=== PATIENT | male | born 1985 | race Hispanic/Latino ===

== ENCOUNTER 2017-02-26 08:31 | Inpatient (IN) | payer OTHER ==
[~2017-02-26] VITALS: Ht 167.6 cm; Wt 77.8 kg
[2017-02-26] MEDS ORDERED: D3-5CAP (08:51)
[2017-02-26] MEDS ORDERED: FLUO20CA9 (08:51)
[2017-02-26] MEDS ORDERED: ZALE10CA (08:51)
[2017-02-26 09:50] LABS: MEAN CORPUSCULAR HEMOGLOBIN 25.8 pg (27.0-33.0); MEAN CORPUSCULAR HGB CONC 33.3 g/dl (32.0-36.5); MEAN CORPUSCULAR VOLUME 77.5 fl (80.0-96.0); RED CELL DISTRIBUTION WIDTH 13.3 % (11.5-14.5); WHITE BLOOD COUNT 5.7 K/mm3 (4.0-10.0)
[2017-02-26 10:13] LABS: METHADONE URINE NEGATIVE (NEGATIVE)
[2017-02-26 10:22] LABS: ALBUMIN 4.4 GM/DL (3.2-5.2); ALBUMIN/GLOBULIN RATIO 1.29 (1.00-1.93); ALKALINE PHOSPHATASE 72 U/L (45-117); ALT/SGPT 67 U/L (12-78); ANION GAP 5 MEQ/L (8-16); AST/SGOT 23 U/L (15-37); BILIRUBIN,DIRECT < 0.1 MG/DL (0.0-0.2); BILIRUBIN,TOTAL 0.5 MG/DL (0.2-1.0); BLOOD UREA NITROGEN 15 MG/DL (7-18); CALCIUM LEVEL 9.1 MG/DL (8.5-10.1); CARBON DIOXIDE LEVEL 32 MEQ/L (21-32); CHLORIDE LEVEL 99 MEQ/L (98-107); CREATININE FOR GFR 1.13 MG/DL (0.70-1.30); GLOMERULAR FILTRATION RATE > 60.0 (>60); GLUCOSE, FASTING 78 MG/DL (70-105); POTASSIUM SERUM 4.3 MEQ/L (3.5-5.1); SODIUM LEVEL 136 MEQ/L (136-145); TOTAL PROTEIN 7.8 GM/DL (6.4-8.2)
[2017-02-26] MEDS ORDERED: SONA10CA6 PO (14:40)
[2017-02-26] MEDS ORDERED: PROZ20CA11 PO (14:40)
[2017-02-26] MEDS ORDERED: VITA1CAP25 PO (14:40)
[2017-02-26] MEDS ORDERED: NYQU1LIQ PO (14:40)
[2017-02-26 15:41] VITALS: BP 133/82
[2017-02-26] MEDS ORDERED: MAALOX 30 ML SUSP *UDC PO PRN (17:30)
[2017-02-26] MEDS ORDERED: ACETAMINOPHEN TAB 650MG DOSE (2X325MG) PO PRN (17:30)
[2017-02-26] MEDS ORDERED: MOM 30ML SUSPENSION UDC PO PRN (17:30)
[2017-02-26] MEDS: hydrOXYzine 50 MG TAB PO PRN (20:41)
[2017-02-26] MEDS ORDERED: FLUoxetine 20 MG CAP PO SCH (21:00)
[2017-02-26] MEDS ORDERED: traZODone 50 MG TAB PO ONE (21:30)
[2017-02-27 06:00] VITALS: BP 111/54
[2017-02-27] MEDS: hydrOXYzine 50 MG TAB PO PRN (12:12)
--- NOTE | 2017-02-27 13:38 | HPEPDOC ---
Medical History and Physical Date of Admission Feb 26, 2017 at 14:13 History and Physical PCP: Freddy ATTENDING: Dr. Sarath Williamson HPI: 31yoM admitted to [facility] for unspecified depressive disorder, being medically examined today. Pt states he has been having RLQ abdominal pain that comes and goes. Denies any urinary complaints, diarrhea, constipation. Denies any fevers, chills, weakness, fatigue, DAMON, CP, SOB, cough, palpitations, abdominal pain, N/V/D or changes in bowel or bladder habits. PMHx: chronic neck pain/LBP/Knee pain- [facility] Pain management Vitamin D Def insomnia allergic rhinitis depression RHETT/CPAP PSHX: back injections knee injections wisdom teeth extraction SOCHX: Resides in: [place], from 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 ROS: As noted in HPI, otherwise 11pt ROS of systems reviewed and unremarkable. PE: GEN: 31yoM, appears stated age. Well-nourished, well developed. No acute distress. Alert and oriented x 3. Pleasant, interactive. HEENT: Normocephalic, atraumatic. Pupils are equal, round, and reactive to light. Extraocular movements are intact. No nystagmus appreciated. Sclera are nonicteric. Conjunctiva without injection. Nose midline. Nasal turbinates without bogginess. EACs both patent BL. TMs both visualized and weir with good cone of light, no bulging or erythema. No facial asymmetry. Moist mucous membranes. Dentition fair. Pharynx pink and moist, no cobblestoning. Neck supple , trachea midline. No lymphadenopathy or thyromegaly appreciated. CHEST: Regular rate and rhythm, +S1, +S2 LUNGS: Clear to auscultation bilaterally. No wheezes, rales, or rhonchi. Breathing appears symmetric and easy. Patient is speaking in full sentences. No accessory muscle use. ABD: Round, soft, mild RLQ TTP, non-distended. +Bowel sounds throughout. No rebound or guarding. No costovertebral angle tenderness. EXT: Pulses 2+ bilaterally dorsalis pedis and radial. No lower extremity edema appreciated. SKIN: [place], dry, warm. Capillary refill <2sec. No rashes. NEURO: Alert and oriented x 3. Cranial nerves III-XII are intact. No focal deficits appreciated. EKG: pending. A&P: 31yoM admitted to [facility] for unspecified depressive disorder, 1. Psych. Plan per Psychiatry. Obtain baseline EKG to assure the safety of psychiatric medications as they can prolong the QT interval. 2. allergic rhinitis. Add Zyrtec. 3. Vitamin d deficiency. Continue supplement. Update Vitamin D level. 4. Follow up with PCP on discharge. 5. Abdominal pain. CBC/CMP. Check CT A/P. 6. RHETT. Continue with CPAP. 7. Sherice LAWSON present throughout exam. Vital Signs Vital Signs Date Time Temp Pulse Resp B/P (MAP) Pulse Ox O2 Delivery O2 Flow Rate FiO2 02/27/17 06:00 98.6 63 16 111/54 (73) 02/26/17 15:41 98 Room Air Laboratory Data Labs 24H Item Value Date Time White Blood Count 5.7 K/mm3 02/26/17 0938 Red Blood Count 5.52 M/mm3 02/26/17 0938 Hemoglobin 14.3 g/dl 02/26/17 0938 Hematocrit 42.8 % 02/26/17 0938 Mean Corpuscular Volume 77.5 fl L 02/26/17 0938 Mean Corpuscular Hemoglobin 25.8 pg L 02/26/17 0938 Mean Corpuscular Hemoglobin Concent 33.3 g/dl 02/26/17 0938 Red Cell Distribution Width 13.3 % 02/26/17 0938 Platelet Count 198 k/mm3 02/26/17 0938 Sodium Level 136 MEQ/L 02/26/17 0938 Potassium Level 4.3 MEQ/L 02/26/17 0938 Chloride Level 99 MEQ/L 02/26/17 0938 Carbon Dioxide Level 32 MEQ/L 02/26/17 0938 Anion Gap 5 MEQ/L L 02/26/17 0938 Blood Urea Nitrogen 15 MG/DL 02/26/17 0938 Creatinine 1.13 MG/DL 02/26/17 0938 Glomerular Filtration Rate > 60.0 02/26/17 0938 Fasting Glucose 78 MG/DL 6/15/17 0938 Calcium Level 9.1 MG/DL 02/26/17937 Total Bilirubin 0.5 MG/DL 02/26/17937 Direct Bilirubin < 0.1 MG/DL 02/26/17937 Aspartate Amino Transf (AST/SGOT) 23 U/L 02/26/17937 Alanine Aminotransferase (ALT/SGPT) 67 U/L 02/26/17 09 Alkaline Phosphatase 72 U/L 02/26/17937 Albumin 4.4 GM/DL 02/26/17937 Total Protein 7.8 GM/DL 02/26/17937 Albumin/Globulin Ratio 1.29 02/26/17937 Thyroid Stimulating Hormone (TSH) 1.050 uIU/ML 02/26/17937 Salicylates Level < 1.7 MG/DL L 02/26/17937 Urine Opiates Screen NEGATIVE 02/26/17937 Urine Methadone Screen NEGATIVE 02/26/17937 Acetaminophen Level < 2.0 UG/ML L 02/26/17937 Urine Barbiturates Screen NEGATIVE 02/26/17 09 Urine Phencyclidine Screen NEGATIVE 02/26/17 0938 Urine Amphetamines Screen NEGATIVE 02/26/1738 Urine Benzodiazepines Screen NEGATIVE 02/26/17937 Urine Cocaine Metabolite Screen NEGATIVE 02/26/17937 Urine Cannabinoids Screen NEGATIVE 02/26/17937 Ethyl Alcohol Level 0.004 % 02/26/17 09 Home Medications Scheduled (Sonata) 10 Mg Cap, 10 MG PO QHS Cholecalciferol (Vitamin D3) 50,000 Unit Cap, 50,000 UNIT PO QWEEK Fluoxetine HCl (Prozac) 20 Mg Cap, 40 MG PO QHS Scheduled PRN (Nyquil Severe Cold/Flu 5-6.25-10-325 mg/15Ml) 1 Liq Liq, 1 LIQ PO QHS PRN for COLD SYMPTOMS Allergies Coded Allergies: Zolpidem (Unverified Adverse Reaction, Severe, Suicidal ideations, 02/26/17 ) Nay Andrade Feb 27, 2017 13:38
[2017-02-27] MEDS: CETIRIZINE (ZyrTEC) 10 MG TAB PO SCH (15:40)
[2017-02-27 15:49] LABS: BASO % 0.4 % (0.0-1.0); EOS # 0.3 K/mm3 (0.0-0.50); EOS % 6.4 % (0.0-3.0); LARGE UNSTAINED CELL # 0.1 K/mm3 (0.0-0.4); LARGE UNSTAINED CELL % 1.3 % (0.0-4.0); LYMPH # 1.4 K/mm3 (1.5-6.5); LYMPH % 30.1 % (24.0-44.0); MEAN CORPUSCULAR HEMOGLOBIN 26.3 pg (27.0-33.0); MEAN CORPUSCULAR HGB CONC 34.1 g/dl (32.0-36.5); MEAN CORPUSCULAR VOLUME 77.1 fl (80.0-96.0); MONO # 0.3 K/mm3 (0.0-0.8); MONO % 5.9 % (0.0-5.0); NEUTROPHILS # 2.4 K/mm3 (1.8-7.7); NEUTROPHILS % 55.9 % (36.0-66.0); PLATELET COUNT, AUTOMATED 195 k/mm3 (150-450); RED CELL DISTRIBUTION WIDTH 13.2 % (11.5-14.5); WHITE BLOOD COUNT 4.4 K/mm3 (4.0-10.0)
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
[2017-02-27 16:57] LABS: ALBUMIN 3.7 GM/DL (3.2-5.2); ALBUMIN/GLOBULIN RATIO 1.28 (1.00-1.93); ALKALINE PHOSPHATASE 68 U/L (45-117); ALT/SGPT 59 U/L (12-78); ANION GAP 5 MEQ/L (8-16); AST/SGOT 17 U/L (15-37); BILIRUBIN,TOTAL 0.3 MG/DL (0.2-1.0); BLOOD UREA NITROGEN 17 MG/DL (7-18); CALCIUM LEVEL 8.6 MG/DL (8.5-10.1); CARBON DIOXIDE LEVEL 32 MEQ/L (21-32); CHLORIDE LEVEL 102 MEQ/L (98-107); CREATININE FOR GFR 1.23 MG/DL (0.70-1.30); GLOMERULAR FILTRATION RATE > 60.0 (>60); GLUCOSE, FASTING 104 MG/DL (70-105); POTASSIUM SERUM 4.2 MEQ/L (3.5-5.1); SODIUM LEVEL 139 MEQ/L (136-145); TOTAL PROTEIN 6.6 GM/DL (6.4-8.2)
[2017-02-27 18:00] VITALS: BP 111/60
--- NOTE | 2017-02-27 19:12 | REP ---
CT abdomen and pelvis without IV or oral contrast: History: Right lower quadrant abdominal pain. Findings: Digital preliminary chief cook radiograph demonstrates moderate stool in the right and left colon. The lung bases are clear. The liver and the spleen are normal in size, homogeneous in texture. No adrenal lesion is seen. The pancreas is unremarkable. Gallbladder is small and contracted. The kidneys appear morphologically intact. No hydronephrosis or intrarenal calculus is seen. No periaortic mass or adenopathy is observed. A normal appendix is seen just anterior to the psoas margin on the right side. Small and large intestinal bowel loops are unremarkable in the abdomen and pelvis on axial CT images. No obstructive lesion is seen. Seminal vesicles, prostate and urinary bladder are unremarkable. Impression: Moderate stool in the proximal and distal colon on chief cook view. No evidence of obstructive lesion. Otherwise, negative CT study abdomen and pelvis. Signed by Juancho Vela MD 02/27/2017 07:33 P
[2017-02-27] MEDS: FLUoxetine 20 MG CAP PO SCH (21:00)
[2017-02-28 06:35] VITALS: BP 103/55
[2017-02-28] MEDS: CETIRIZINE (ZyrTEC) 10 MG TAB PO SCH (08:29)
[2017-02-28] MEDS: hydrOXYzine 50 MG TAB PO PRN ×2 (08:30→21:01)
--- NOTE | 2017-02-28 08:55 | ECGEPIP ---
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
[2017-02-28 18:21] VITALS: BP 113/60
[2017-02-28] MEDS: FLUoxetine 20 MG CAP PO SCH (21:01)
[2017-03-01 06:39] VITALS: BP 114/59
--- NOTE | 2017-03-01 07:56 | IPN ---
DATE: 02/28/2017 SUBJECTIVE: "I am tired." OBJECTIVE: The patient is in bed at mid morning with closed eyes, no interaction with other patients and staff. The patient denies side effects from the medication. There is no evidence of psychotic symptoms. The patient is able to contract for safety. MENTAL STATUS EXAMINATION: The patient is dressed in [facility], has poor eye contact. Speech is slow and monotone. Mood is depressed and anxious. Affect is restricted. No delusions or hallucinations. Memory, attention and concentration are fair. The patient is able to contract for safety during the hospitalization. Insight and judgment is limited. ASSESSMENT: 1. Depression. 2. Anxiety. PLAN: 1. Continue with Prozac 40 mg by mouth nightly. 2. Continue medication management, individual and group therapy.
[2017-03-01] MEDS: CETIRIZINE (ZyrTEC) 10 MG TAB PO SCH (09:32)
[2017-03-01 18:00] VITALS: BP 122/72
--- NOTE | 2017-03-01 18:27 | IPN ---
DATE: 03/01/2017 SUBJECTIVE: "I'm feeling better." OBJECTIVE: Patient reports improvement, appears motivated for treatment. His facial expression has improved. Denies side effect from medication. No evidence of psychotic symptoms. Patient is able to contract for safety while in the hospital. MENTAL STATUS EXAMINATION: Patient is dressed in [facility], has poor eye contact. His speech is slow and monotone, but improving. Mood is depressed and anxious, but also improving. Affect is not as restricted. No delusions or hallucinations. Memory, attention, and concentration are fair. Patient is able to contract for safety during the interview. Insight and judgment is limited. ASSESSMENT: 1. Depression. 2. Anxiety. PLAN: 1. Continue with Prozac 40 mg by mouth daily. 2. Continue with medication management, individual and group therapy.
[2017-03-01] MEDS: hydrOXYzine 50 MG TAB PO PRN (20:53)
[2017-03-01] MEDS: FLUoxetine 20 MG CAP PO SCH (20:54)
[2017-03-02 07:19] VITALS: BP 113/60
[2017-03-02] MEDS: CETIRIZINE (ZyrTEC) 10 MG TAB PO SCH (08:33)
--- NOTE | 2017-03-02 16:11 | MHIPNPDOC ---
[facility] Progress Note Progress Note DATE OF SERVICE: 03/02/17 INTERVAL HISTORY: Medication Side effects: Patient reports that he has felt better with hydroxyzine. He doesn't believe Prozac is working because he has taken it for 4 months but since he started hydroxyzine he has been able to sleep and feels more relaxed. Behavior: Has been attending groups, being less aggressive. Group Attendance: Has been attending groups and has found them helpful Psychiatric Symptom change: He reports that he feels better, less anxious and has slept better since he has been taking hydroxyzine. He believes groups have helped him. VITAL SIGNS: See below. NEW TEST RESULTS: See below CURRENT MEDICATIONS: See below. MENTAL STATUS EXAMINATION: General: Alert, with poor eye contact, less guarded Speech: Normal, not tangential and not circumstantial Thought processes: Intact Thought content: Thoughts about his illness, about how he has been in the past, irritable, with short temper, inpatient and how he feels that this is changing him Abstract reasoning, and computation: Fair Description of associations: Not loose Description of abnormal or psychotic thoughts: Denies auditory and visual hallucinations, denies thought delusions and denies homicidal and suicidal ideation Judgment: Improving Insight: Improving Orientation: Oriented 3 Recent and remote memory: Intact Attention span and concentration: Fair Fund of knowledge: Fair Mood: "I feel better" Affect: Less constricted, less irritable DIAGNOSES: 1. Major Depressive Disorder,recurrent 2. Narcissistic Personality Disorder ASSESSMENT: Patient has improved and he feels that he has been hydroxyzine that has helped him, so when I think that it is anxiety what it really has become a problem for him to manage. MANAGEMENT PLAN: Medications: Will continue on hydroxyzine 50 mg by mouth every 6 hours for anxiety and Prozac 40 mg by mouth every morning Psychotherapy: Will be attending groups Social: Patient will be made aware of the importance of social skills in order to maintain healthy relationships Misc: -- Disposition: The patient still needs to be stabilized but probably will be discharged soon. TIME SPENT: 30 minutes. Vital Signs Vital Signs Date Time Temp Pulse Resp B/P (MAP) Pulse Ox O2 Delivery O2 Flow Rate FiO2 03/02/17 07:19 98.9 67 18 113/60 (77) 02/26/17 15:41 98 Room Air Current Medications Current Medications Acetaminophen (Tylenol Tab) 650 mg Q6HP PRN PO HEADACHE or DISCOMFORT; Start at 17:30; Stop 03/28/17 at 17:29 Al Hydrox/Mg Hydrox/Simethicone (Mylanta) 30 ml Q4HP PRN PO HEARTBURN/ INDIGESTION; Start 02/26/17 at 17:30; Stop 03/28/17 at 17:29 Cetirizine HCl (ZyrTEC) 10 mg DAILY PO Last administered on 03/02/17 08:33; Start 02/27/17 at 09:00; Stop 03/29/17 at 08:59 Fluoxetine HCl (PROzac) 20 mg QHS PO Last administered on 02/26/17 20:41; Start 02/26/17 at 21:00; Stop 02/27/17 at 16:33; Status DC Fluoxetine HCl (PROzac) 40 mg QHS PO Last administered on 03/01/17 20:54; Start 02/27/17 at 21:00; Stop 03/29/17 at 20:59 Home Med (Med Rec Complete!) ASDIRECTED XX ; Start 02/26/17 at 14:45; Stop at 14:45; Status DC Hydroxyzine HCl (Atarax) 50 mg Q6HP PRN PO ANXIETY Last administered on 20:53; Start 02/26/17 at 17:30; Stop 03/28/17 at 17:29 Magnesium Hydroxide (Milk Of Magnesia) 30 ml DAILYPRN PRN PO CONSTIPATION; Start 02/26/17 at 17:30; Stop 03/28/17 at 17:29 Vitamin D (Drisdol) 50,000 units We@09 PO ; Start 03/04/17 at 09:00; Stop at 08:59 Allergies Coded Allergies: Zolpidem (Unverified Adverse Reaction, Severe, Suicidal ideations, 02/26/17 ) CRISTIAN IVY MD Mar 02, 2017 16:11
[2017-03-02 18:00] VITALS: BP 120/68
[2017-03-02] MEDS: hydrOXYzine 50 MG TAB PO PRN (20:51)
[2017-03-02] MEDS: FLUoxetine 20 MG CAP PO SCH (20:52)
[2017-03-03 06:48] VITALS: BP 118/64
[2017-03-03] MEDS: CETIRIZINE (ZyrTEC) 10 MG TAB PO SCH (09:25)
--- NOTE | 2017-03-03 16:22 | MHIPNPDOC ---
[facility] Progress Note Progress Note DATE OF SERVICE: 03/03/17 INTERVAL HISTORY: Medication Side effects: Reports some mild dry mouth from his hydroxyzine with no side effects from his Prozac, comments that his side effects from the hydroxyzine are tolerable Behavior/events: Has become much more amenable to staff interventions as noted to be much more friendly and thankful on the jama Group Attendance: Has attended groups very frequently Psychiatric Symptoms: Reports that his depression and anxiety have almost entirely resolved and that he is feeling "much better" on the hydroxyzine, he feels that the relief from his anxiety significantly brings him back to his baseline prior to that appointment. He describes that he is feeling ready for discharge and is excited to return home to resume college. He has no other complaints. VITAL SIGNS: See below. NEW TEST RESULTS: See below CURRENT MEDICATIONS: See below. MENTAL STATUS EXAMINATION: General: Well dressed with good hygiene Speech: Spontaneous and fluid Thought processes: Linear and logical Thought content: Future orientated, focused on going back to college Abstract reasoning, and computation: Intact Description of associations: Intact Description of abnormal or psychotic thoughts:Denies any suicidal or homicidal ideation. Denies any auditory or visual hallucinations. Does not appear to be responding to internal stimuli. Does not appear to be endorsing any bizarre or paranoid ideation. Judgment: Improved Insight: Improved Orientation: Alert and orientated 3 Recent and remote memory: Intact Attention span and concentration: Intact Fund of knowledge: Adequate Mood: "Good" Affect: Euthymic with a full range DIAGNOSES: 1. Unspecified depressive disorder. 2. Unspecified anxiety disorder. 3. Narcissistic personality disorder, provisional. ASSESSMENT: Improving, nearing stability MANAGEMENT PLAN: Medications: Continue Prozac 40 mg and hydroxyzine as below Psychotherapy: Encourage group therapy Social: Discharge on , March 05 as his [facility] transition unit officer is not available for discharge tomorrow Misc: None Disposition: The patient will need of further inpatient stay to address disposition planning. TIME SPENT: 15 minutes. Vital Signs Vital Signs Date Time Temp Pulse Resp B/P (MAP) Pulse Ox O2 Delivery O2 Flow Rate FiO2 03/03/17 06:48 98.7 63 16 118/64 (82) 02/26/17 15:41 98 Room Air Current Medications Current Medications Acetaminophen (Tylenol Tab) 650 mg Q6HP PRN PO HEADACHE or DISCOMFORT; Start at 17:30; Stop 03/28/17 at 17:29 Al Hydrox/Mg Hydrox/Simethicone (Mylanta) 30 ml Q4HP PRN PO HEARTBURN/ INDIGESTION; Start 02/26/17 at 17:30; Stop 03/28/17 at 17:29 Cetirizine HCl (ZyrTEC) 10 mg DAILY PO Last administered on 03/03/17 09:25; Start 02/27/17 at 09:00; Stop 03/29/17 at 08:59 Fluoxetine HCl (PROzac) 20 mg QHS PO Last administered on 02/26/17 20:41; Start 02/26/17 at 21:00; Stop 02/27/17 at 16:33; Status DC Fluoxetine HCl (PROzac) 40 mg QHS PO Last administered on 03/02/17 20:52; Start 02/27/17 at 21:00; Stop 03/29/17 at 20:59 Home Med (Med Rec Complete!) ASDIRECTED XX ; Start 02/26/17 at 14:45; Stop at 14:45; Status DC Hydroxyzine HCl (Atarax) 50 mg Q6HP PRN PO ANXIETY Last administered on 20:51; Start 02/26/17 at 17:30; Stop 03/28/17 at 17:29 Magnesium Hydroxide (Milk Of Magnesia) 30 ml DAILYPRN PRN PO CONSTIPATION; Start 02/26/17 at 17:30; Stop 03/28/17 at 17:29 Vitamin D (Drisdol) 50,000 units We@09 PO ; Start 03/04/17 at 09:00; Stop at 08:59 Allergies Coded Allergies: Zolpidem (Unverified Adverse Reaction, Severe, Suicidal ideations, 02/26/17 ) GME ATTESTATION My preceptor for this patient encounter was physically present in the building during the encounter and was fully available. As needed, all aspects of the patient interview, examination, medical decision making process, and medical care plan development were reviewed and approved by the preceptor. Preceptor is aware and concurs with the plan as stated in the body of this note and will attest to such by his/her cosignature. CINDY GUO DO Mar 03, 2017 16:22
[2017-03-03 18:00] VITALS: BP 117/78
[2017-03-03] MEDS: FLUoxetine 20 MG CAP PO SCH (20:51)
[2017-03-03] MEDS: hydrOXYzine 50 MG TAB PO PRN (20:52)
[2017-03-04 06:41] VITALS: BP 122/66
[2017-03-04] MEDS ORDERED: VITAMIN D 50,000 UNITS CAPSULE (ERGOCALCIFEROL 1.25MG) PO SCH (09:00)
[2017-03-04] MEDS: CETIRIZINE (ZyrTEC) 10 MG TAB PO SCH (09:05)
[2017-03-04] MEDS ORDERED: PROZ20CA11 PO (14:53)
[2017-03-04] MEDS ORDERED: CETI10TA PO (14:53)
[2017-03-04] MEDS ORDERED: HYDRO50TAB PO (14:53)
[2017-03-04 18:51] VITALS: BP 113/67
--- NOTE | 2017-03-04 19:16 | MHIPNPDOC ---
[facility] Progress Note Progress Note DATE OF SERVICE: 03/04/17 INTERVAL HISTORY: Medication Side effects: reports improving dry mouth from hydroxyzine, no side effects reported from fluoxetine Behavior/events: friendly and amenable, no events overnight Group Attendance: has been attending groups regularly Psychiatric Symptoms: reports that his depression and anxiety have entirely resolved, his sleep is normalized and is eating at baseline. He describes these feeling ready to return home. His was contacted by the discharge planners, whom also relayed that [place], that he is at baseline and ready to return home. VITAL SIGNS: See below. NEW TEST RESULTS: See below CURRENT MEDICATIONS: See below. MENTAL STATUS EXAMINATION: General: Well dressed with good hygiene Speech: Spontaneous and fluid Thought processes: Linear and logical Thought content: future oriented, planning his college courses Abstract reasoning, and computation: Intact Description of associations: Intact Description of abnormal or psychotic thoughts:Denies any suicidal or homicidal ideation. Denies any auditory or visual hallucinations. Does not appear to be responding to internal stimuli. Does not appear to be endorsing any bizarre or paranoid ideation. Judgment: fair Insight: improving Orientation: Alert and orientated 3 Recent and remote memory: Intact Attention span and concentration: Intact Fund of knowledge: Adequate Mood: "great" Affect: Euthymic with a full range DIAGNOSES: 1. Unspecified depressive disorder. 2. Unspecified anxiety disorder. 3. Narcissistic personality disorder, provisional. ASSESSMENT: improving, ready for discharge MANAGEMENT PLAN: Medications: continue hydroxyzine and Prozac as below Psychotherapy: encourage group therapy Social: discharge tomorrow at 10 AM Misc: none Disposition: The patient will need of further inpatient stay to address disposition needs. TIME SPENT: 15 minutes. Vital Signs Vital Signs Date Time Temp Pulse Resp B/P (MAP) Pulse Ox O2 Delivery O2 Flow Rate FiO2 03/04/17 18:51 100.4 77 16 113/67 (82) 02/26/17 15:41 98 Room Air Current Medications Current Medications Acetaminophen (Tylenol Tab) 650 mg Q6HP PRN PO HEADACHE or DISCOMFORT; Start at 17:30; Stop 03/28/17 at 17:29 Al Hydrox/Mg Hydrox/Simethicone (Mylanta) 30 ml Q4HP PRN PO HEARTBURN/ INDIGESTION; Start 02/26/17 at 17:30; Stop 03/28/17 at 17:29 Cetirizine HCl (ZyrTEC) 10 mg DAILY PO Last administered on 03/04/17 09:05; Start 02/27/17 at 09:00; Stop 03/29/17 at 08:59 Fluoxetine HCl (PROzac) 20 mg QHS PO Last administered on 02/26/17 20:41; Start 02/26/17 at 21:00; Stop 02/27/17 at 16:33; Status DC Fluoxetine HCl (PROzac) 40 mg QHS PO Last administered on 03/03/17 20:51; Start 02/27/17 at 21:00; Stop 03/29/17 at 20:59 Home Med (Med Rec Complete!) ASDIRECTED XX ; Start 02/26/17 at 14:45; Stop at 14:45; Status DC Hydroxyzine HCl (Atarax) 50 mg Q6HP PRN PO ANXIETY Last administered on 20:52; Start 02/26/17 at 17:30; Stop 03/28/17 at 17:29 Magnesium Hydroxide (Milk Of Magnesia) 30 ml DAILYPRN PRN PO CONSTIPATION; Start 02/26/17 at 17:30; Stop 03/28/17 at 17:29 Vitamin D (Drisdol) 50,000 units We@09 PO Last administered on 03/04/17 09:05 ; Start 03/04/17 at 09:00; Stop 04/03/17 at 08:59 Allergies Coded Allergies: Zolpidem (Unverified Adverse Reaction, Severe, Suicidal ideations, 02/26/17 ) GME ATTESTATION My preceptor for this patient encounter was physically present in the building during the encounter and was fully available. As needed, all aspects of the patient interview, examination, medical decision making process, and medical care plan development were reviewed and approved by the preceptor. Preceptor is aware and concurs with the plan as stated in the body of this note and will attest to such by his/her cosignature. CINDY GUO DO Mar 04, 2017 19:16
[2017-03-04] MEDS: hydrOXYzine 50 MG TAB PO PRN (20:38)
[2017-03-04] MEDS: FLUoxetine 20 MG CAP PO SCH (20:38)
[2017-03-05 06:27] VITALS: BP 119/59
[2017-03-05] MEDS: CETIRIZINE (ZyrTEC) 10 MG TAB PO SCH (09:14)
--- NOTE | 2017-03-05 18:20 | MHDSPDOC ---
[facility] Discharge Summary Discharge Summary DATE OF ADMISSION: Feb 26, 2017 at 14:13 DATE OF DISCHARGE: Mar 05, 2017 at 10:35 DISCHARGE DIAGNOSES: 1. Unspecified depressive disorder. 2. Unspecified anxiety disorder. 3. Narcissistic personality disorder. REASON FOR ADMISSION: Admitted for suicidal ideation reported to his therapist CONSULTANTS INVOLVED: None TREATMENT AND PROGRESS ON THE UNIT : Legal status on admission: 9.39 Medication Management: patient was resumed at home Prozac 40 mg daily and start on hydroxyzine 50 mg nightly very well for his anxiety and improve his mood Psychotherapy: patient eventually began to engage in groups and by the end of his admission was attending regularly Behavior: when he arrived patient was very sarcastic and diminutive, as his mood improved to became much more amenable and friendly Discharge planning: after the patient improved he was slated to be discharged Outpatient recommendations: none Pending studies on discharge: none DISCHARGE ASSESSMENT: 31-year-old man with a history of narcissistic injury consistent with narcissistic personality disorder, however, he does appear to have an underlying major depressive disorder with anxious features,however is difficult to ascertain due to likely personality traits. MENTAL STATUS EXAMINATION ON DISCHARGE: General: Well dressed with good hygiene Speech: Spontaneous and fluid Thought processes: Linear and logical Thought content: future orientated Abstract reasoning, and computation: Intact Description of associations: Intact Description of abnormal or psychotic thoughts:Denies any suicidal or homicidal ideation. Denies any auditory or visual hallucinations. Does not appear to be responding to internal stimuli. Does not appear to be endorsing any bizarre or paranoid ideation. Judgment: improved Insight: improved Orientation: Alert and orientated 3 Recent and remote memory: Intact Attention span and concentration: Intact Fund of knowledge: Adequate Mood: "okay" Affect: Euthymic with a full range PLAN/FOLLOWUP ARRANGEMENTS: Follow-up with [facility]. The social work team worked during the predischarge meeting in order to evaluate for further issues of lethality address them fully before discharge. They worked on safety planning with the patient's family members in order to ensure that the patient will have a safe and effective discharge. The amount of time spent in the coordination of care for this patient was approximately 30 minutes. Vital Signs/I&Os Vital Signs Date Time Temp Pulse Resp B/P (MAP) Pulse Ox O2 Delivery O2 Flow Rate FiO2 6/22/17 06:27 98.6 59 16 119/59 (79) Room Air Medications Scheduled (Sonata) 10 Mg Cap, 10 MG PO QHS, (Reported) Cetirizine HCl (Cetirizine HCl) 10 Mg Tab, 10 MG PO DAILY for allergies, #7 Cholecalciferol (Vitamin D3) 50,000 Unit Cap, 50,000 UNIT PO QWEEK, (Reported) Fluoxetine HCl (Prozac) 20 Mg Cap, 40 MG PO QHS for MOOD, #7 Scheduled PRN Hydroxyzine HCl (Hydroxyzine HCl) 50 Mg Tab, 50 MG PO Q6HP PRN for ANXIETY, #7 Allergies Coded Allergies: Zolpidem (Unverified Adverse Reaction, Severe, Suicidal ideations, 02/26/17 ) GME ATTESTATION My preceptor for this patient encounter was physically present in the building during the encounter and was fully available. As needed, all aspects of the patient interview, examination, medical decision making process, and medical care plan development were reviewed and approved by the preceptor. Preceptor is aware and concurs with the plan as stated in the body of this note and will attest to such by his/her cosignature. CINDY GUO DO Mar 05, 2017 18:20
== END 2017-03-05 10:35 | disposition home or self-care (01) | DRG 881 ==
LOC: M ED 09:07 → M ED INP 14:13 → M PSY 15:00
PROVIDERS: ADMIT Psychiatry & Neurology Psychiatry; ATTEND Psychiatry & Neurology Psychiatry
DX: F32.9 Major depressive disorder, single episode, unspecified (principal); R45.851 Suicidal ideations; F41.9 Anxiety disorder, unspecified; F60.81 Narcissistic personality disorder; J30.9 Allergic rhinitis, unspecified; E55.9 Vitamin D deficiency, unspecified; R10.9 Unspecified abdominal pain; G47.33 Obstructive sleep apnea (adult) (pediatric); Z99.89 Dependence on other enabling machines and devices; Z83.3 Family history of diabetes mellitus; Z79.899 Other long term (current) drug therapy; Z88.8 Allergy status to other drugs, medicaments and biological substances